=== PATIENT | male | born 1980 | race Two or more races ===

== ENCOUNTER 2016-09-08 16:51 | Emergency (ER) | payer BC, OTHER ==
[~2016-09-08] VITALS: Ht 170.2 cm; Wt 79.4 kg
[2016-09-08 17:12] VITALS: BP 123/69
[2016-09-08] MEDS ORDERED: KETOROLAC TROMETHAMINE INJ 30 MG/ML VIAL ONE (18:24)
[2016-09-08] MEDS ORDERED: KETOROLAC TROMETHAMINE INJ 30 MG/ML VIAL IM ONE (18:30)
== END 2016-09-08 18:31 | disposition home or self-care (01) ==
LOC: ER 16:54
DX: S16.1XXA Strain of muscle, fascia and tendon at neck level, initial encounter (principal); V49.60XA Unspecified car occupant injured in collision with unspecified motor vehicles in traffic accident, initial encounter; Y93.89 Activity, other specified; Y92.413 State road as the place of occurrence of the external cause; Y99.8 Other external cause status
CPT/HCPCS: 96372; 99283; A4606; J1885; Z7610